=== PATIENT | female | born 1970 | race African-American/Black ===

== ENCOUNTER 2019-12-04 06:56 | Emergency (ER) | payer OTHER, SELFPAY ==
--- NOTE | ~2019-12-04 | US_ITS ---
EXAMINATION: US venous doppler [facility] DATE: 12/04/2019 08:28 INDICATION: Left lower limb pain and swelling TECHNIQUE: Alejandro scale images without and with compression and Doppler images of the left lower extrem ity veins were obtained. COMPARISON: None FINDINGS: The left common femoral vein, profunda femoral vein, femoral vein, popliteal vein, peroneal trunk, posterior tibial veins, and greater saphenous vein are patent. IMPRESSION: 1. Patent left lower extremity veins. No evidence of deep venous thrombosis. Reviewed, dictated and finalized at location B.
[2019-12-04 07:02] VITALS: BP 164/116; PULSE 91; RESP 20; TEMP 35.8; O2SAT 100
--- NOTE | 2019-12-04 07:50 | ED.EXTPRO ---
HPI - Extremity Problem General Chief complaint: Extremity Problem,Nontraumatic Stated complaint: LEFT CALF PAIN TO FOOT Time Seen by Provider: 12/04/19 07:44 History of Present Illness HPI Narrative: Patient presents to the ED for left lower leg swelling and pain since yesterday. She has had no injury or new exercise. She says she has rheumatoid arthritis. 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 She says the pain starts behind her left knee and goes down into the calf. This morning she noticed swelling and her left foot felt numb. She does not smoke cigarettes, drink alcohol, or do drugs. She has a surgical history of tubal ligation, and breast reduction. She has not been sick recently. MD Complaint: extremity pain and extremity swelling Onset (ago): day(s) Pain Consistency: constant Location: left Severity scale (1-10): 6 Radiation: distal Relieving factors: nothing Exacerbating factors: palpation Associated symptoms: arthralgias Related Data Home Medications Medication Instructions Recorded Confirmed metoprolol succinate 50 mg PO DAILY 12/04/19 Allergies Allergy/AdvReac Type Severity Reaction Status Date / Time No Known Allergies Allergy Verified 12/04/19 07:13 Review of Systems Review of Systems: Narrative: CONSTITUTIONAL: Denies fever, chills, or sweats. EYES: Denies visual changes, redness, or discharge. ENT: Denies rhinorrhea, congestion, sore throat, or otalgia. CARDIOVASCULAR: Denies chest pain, palpitations, or edema. RESPIRATORY: Denies cough or dyspnea. GASTROINTESTINAL: Denies abdominal pain, nausea, vomiting, or diarrhea. GENITOURINARY: Denies dysuria or hematuria. SKIN: Denies rash or itching. MUSCULOSKELETAL: Denies back pain, but has left knee pain and left calf pain. NEUROLOGIC: Denies headache, numbness, or weakness. PSYCHIATRIC: Denies anxiety or depression. [facility] Past Medical History Medical History (Updated 12/04/19 @ 09:16 by Hayde Portillo MD) Depression HTN (hypertension) Morbid obesity Rheumatoid arthritis Surgical History Surgical History H/O tubal ligation Hx of hysterectomy Social History Social History (Updated 12/04/19 @ 07:52 by Hayde Portillo MD) Smoking status: Never smoker Alcohol intake: current Substance use: current Gender identity (if verbalized by the patient): Female Exam Narrative: Exam Narrative: GENERAL: Well-appearing, well-nourished, and in no acute distress. Black short wig. HEAD: Normocephalic, atraumatic. EYES: PERRLA and EOMI. ENT: Nares clear, no rhinorrhea or epistaxis. Mucous membranes moist. NECK: Supple. CHEST: Clear to auscultation. No respiratory distress. HEART: Regular rate and rhythm. No murmur heard. Normal peripheral pulses. ABDOMEN: Soft, nontender, nondistended, normal active bowel sounds. EXTREMITIES: Normal range of motion. Left calf 19-1/4 inches. Right calf 18-3/4 inches. SKIN: Warm, dry, no rash. NEURO: No focal deficits. Alert and oriented x3. PSYCH: Normal mood and affect. Course Reevaluation(s) Reevaluation #1: I was glad to tell the patient that she did not have a blood clot in her leg. She has the known rheumatoid arthritis in the knee. I recommended an Fidel bandage and elevation. She has 2 days off work. She has a follow-up appointment with her apparel fashion designer next month. Date: 12/04/19 Time: 09:21 Vital Signs Vital signs: Vital Signs Temperature 96.5 F L 12/04/19 07:02 Pulse Rate 91 12/04/19 07:02 Respiratory Rate 12/04/19 07:02 Blood Pressure 164/116 H 12/04/19 07:02 Pulse Oximetry 100 12/04/19 07:02 Temperature 96.5 F L 12/04/19 07:02 Pulse Rate 91 12/04/19 07:02 Respiratory Rate 12/04/19 07:02 Blood Pressure 164/116 H 12/04/19 07:02 Pulse Oximetry 100 12/04/19 07:02 MDM - Extremity (Nontraumatic) Medical Records Attestation: I reviewed the patient's m
[2019-12-04 08:44] LABS: Basophils Percent Auto 0.3 % (0.2-1.2); Eosinophils Absolute Auto 0.2 K/mm3 (0-0.3); Eosinophils Percent Auto 2.4 % (0-4.4); Hematocrit 38.5 % (37.0-47.0); Hemoglobin 12.3 g/dL (12.0-15.0); Immature Granulocyte Absolute 0.03 K/mm3 (0.00-0.031); Immature Granulocyte Percent A 0.3 % (0-0.5); Lymphocytes Absolute Auto 3.07 K/mm3 (0.9-3.2); Lymphocytes Percent Auto 34.8 % (18.3-44.2); Mean Corpuscular HGB Conc 31.9 g/dl (32-36); Mean Corpuscular Volume 81.4 fl (80-100); Mean Platelet Volume 10.4 fl (7.4-10.4); Monocytes Absolute Auto 0.4 K/mm3 (0.1-0.6); Monocytes Percent Auto 4.8 % (2.6-8.5); Neutrophils Absolute Auto 5.1 K/mm3 (1.3-6.7); Neutrophils Percent Auto 57.4 % (45.5-73.1); Platelet Count Result 255 k/mm3 (150-375); Red Blood Count 4.73 M/mm3 (4.2-5.4); Red Cell Distribution Width 15.5 % (11.5-14.5); White Blood Count 8.8 K/mm3 (4.5-10.0)
[2019-12-04 08:55] LABS: INR 0.9
[2019-12-04 08:59] LABS: Alanine Aminotransferase 31 U/L (4-35); Albumin Level 3.9 g/dL (3.5-5.1); Alkaline Phosphatase 92 U/L (38-126); Aspartate Amino Transferase 31 U/L (14-36); Bilirubin,Total 0.7 mg/dL (0.2-1.3); Blood Urea Nitrogen 13 mg/dL (7-17); Calcium 9.1 mg/dL (8.4-10.2); Carbon Dioxide 25 mmol/L (22-30); Chloride 106 mmol/L (98-107); Estimated CRCL calculation 101 ml/min; Estimated Glomerular Filt Rate > 60; Glucose 100 mg/dL (65-105); Sodium 137 mmol/L (137-145)
[2019-12-04 09:12] LABS: D Dimer 1.42 ug/mL (<0.48)
== END 2019-12-04 09:24 | disposition home or self-care (01) ==
PROVIDERS: Emergency Provider Emergency Medicine; PCP Family Medicine
DX: R60.0 Localized edema (principal); M06.9 Rheumatoid arthritis, unspecified; E66.01 Morbid (severe) obesity due to excess calories; Z68.41 Body mass index [BMI] 40.0-44.9, adult; I10 Essential (primary) hypertension
CPT/HCPCS: 36415; 80053; 85025; 85380; 85610; 93971; 99284

== ENCOUNTER 2020-04-10 18:56 | Emergency (ER) | payer OTHER, SELFPAY ==
[2020-04-10 19:04] VITALS: BP 151/100; PULSE 99; RESP 16; TEMP 37.2; O2SAT 99
--- NOTE | 2020-04-10 19:10 | ED.FEMALEGU ---
HPI - Female Genitourinary General Chief complaint: Urogenital-Female Stated complaint: UTI Source: patient Mode of arrival: ambulatory Limitations: no limitations History of Present Illness HPI Narrative: Patient is a 49-year-old female who presents complaining of dysuria x1 week, increasing over the past few days. She denies hematuria. 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 She reports a history of UTIs in the past, but has not had 1 in over a year. She denies fever, body aches or other complaints. MD elicited complaint: dysuria Related Data Home Medications Medication Instructions Recorded Confirmed metoprolol succinate 50 mg PO DAILY 12/04/19 04/10/20 escitalopram oxalate 10 mg PO DAILY 04/10/20 04/10/20 leflunomide 20 mg PO DAILY 04/10/20 04/10/20 tofacitinib [Xeljanz XR] 11 mg PO DAILY 04/10/20 04/10/20 Allergies Allergy/AdvReac Type Severity Reaction Status Date / Time No Known Allergies Allergy Verified 12/04/19 07:13 Review of Systems Review of Systems: Narrative: CONSTITUTIONAL: Denies fever, chills, or sweats. EYES: Denies visual changes, redness, or discharge. ENT: Denies rhinorrhea, congestion, sore throat, or otalgia. CARDIOVASCULAR: Denies chest pain, palpitations, or edema. RESPIRATORY: Denies cough or dyspnea. GASTROINTESTINAL: Denies abdominal pain, nausea, vomiting, or diarrhea. GENITOURINARY: Reports dysuria. SKIN: Denies rash or itching. MUSCULOSKELETAL: Denies back pain, joint pain, or myalgia. NEUROLOGIC: Denies headache, numbness, dizziness, or weakness. PSYCHIATRIC: Denies anxiety or depression. [facility] Past Medical History Medical History Depression HTN (hypertension) Morbid obesity Rheumatoid arthritis Surgical History Surgical History H/O tubal ligation Hx of hysterectomy Family History Family History Other Lung cancer Other Heart disease Hypertension Social History Social History (Reviewed 04/10/20 @ 19:21 by LUZ ELENA Forrester Smoking status: Never smoker Alcohol intake: current Substance use: current Gender identity (if verbalized by the patient): Female Exam Narrative: Exam Narrative: GENERAL: Well-appearing, well-nourished, and in no acute distress. HEAD: Normocephalic, atraumatic. EYES: No redness or drainage. ENT: Mucous membranes pink and moist. CHEST: No respiratory distress. HEART: Regular rate and rhythm. GI: Soft, nontender without rebound, or guarding. EXTREMITIES: Normal range of motion. NEURO: No focal deficits. Alert and oriented x3. Gait steady. PSYCH: Normal affect. No signs of depression or anxiety. Course Vital Signs Vital signs: Reviewed. Patient has been instructed to follow-up with her PCP regarding her blood pressure. MDM - Female Genitourinary MDM Narrative Medical decision making narrative: Discussed with patient most likely cause for her dysuria is lack of hydration. Patient reports that she is unable to drink during her long shifts. Discussed trying to stay well-hydrated. We will start patient on Bactrim as she has a history of UTIs but has not had 1 in well over a year. Patient's UA was negative in urgent care. Patient to follow-up with her PCP in 3 to 5 days if symptoms persist. Patient is stable for discharge home with outpatient follow-up as discussed. Critical Care Time Critical Care Time Critical Care Time: No Discharge Plan Discharge Clinical Impression: Dysuria Patient Disposition: Home, Self-Care Condition: Stable Instructions: Antibiotic Form, Dysuria (ED) Additional Instructions: Take medication as directed. Continue to stay well-hydrated, decreased caffeine and carbonated beverages. Follow-up with your PCP and 3 to 5 days if symptoms pe
== END 2020-04-10 19:29 | disposition home or self-care (01) ==
PROVIDERS: Emergency Provider Nurse Practitioner; PCP Family Medicine
DX: R30.0 Dysuria (principal); I10 Essential (primary) hypertension; F32.9 Major depressive disorder, single episode, unspecified; M06.9 Rheumatoid arthritis, unspecified; E66.01 Morbid (severe) obesity due to excess calories; Z68.42 Body mass index [BMI] 45.0-49.9, adult
CPT/HCPCS: 81003; 99213; G0463

== ENCOUNTER 2023-07-23 22:54 | Emergency (ER) | payer OTHER, SELFPAY ==
[2023-07-23 23:00] VITALS: BP 175/106; PULSE 107; RESP 16; TEMP 36.4; O2SAT 98
--- NOTE | 2023-07-24 00:19 | PC.NURSE ---
Patient called for a room. No answer
== END 2023-07-24 00:19 | disposition left against medical advice (07) ==
PROVIDERS: PCP Family Medicine
DX: R10.13 Epigastric pain (principal)
CPT/HCPCS: 99199

== ENCOUNTER 2023-12-04 13:25 | Emergency (ER) | payer OTHER, SELFPAY ==
[2023-12-04 13:38] VITALS: BP 112/70; PULSE 78; RESP 16; TEMP 36.6; O2SAT 99
--- NOTE | 2023-12-04 14:09 | ED.DENTAL ---
HPI - Dental/Oral General Chief complaint: Dental/Oral Stated complaint: right side tooth pain Time Seen by Provider: 12/04/23 14:05 Source: patient and RN notes reviewed Mode of arrival: ambulatory Limitations: no limitations History of Present Illness HPI Narrative: Patient presents today complaining of right lower gumline discomfort times 10 days. She had a root canal done 2 years ago but never had a crown placed. Since that time the tooth has broken off and pieces and she has small amount of the tooth left. She has been taking ibuprofen with some relief. She does have a dentist and will make an appointment next week. Related Data Home Medications Medication Instructions Recorded Confirmed metoprolol succinate 50 mg 50 mg PO DAILY 12/04/19 12/04/23 tablet,extended release 24 hr escitalopram oxalate 10 mg tablet 10 mg PO DAILY 04/10/20 12/04/23 leflunomide 20 mg tablet 20 mg PO DAILY 04/10/20 12/04/23 tofacitinib 11 mg tablet,extended 11 mg PO DAILY 04/10/20 12/04/23 release 24 hr (Xeljanz XR) chlorthalidone 25 mg tablet 25 mg PO DAILY 12/04/23 12/04/23 lisinopril 10 mg tablet 10 mg PO DAILY 12/04/23 12/04/23 meloxicam 15 mg tablet See Rx Instructions .Route .COMPLEX 12/04/23 12/04/23 semaglutide 1 mg/dose (4 mg/3 mL) See Rx Instructions .Route .COMPLEX 12/04/23 12/04/23 subcutaneous pen injector (Ozempic) Allergies Allergy/AdvReac Type Severity Reaction Status Date / Time No Known Allergies Allergy Verified 12/04/23 13:43 Review of Systems Review of Systems: CONSTITUTIONAL: Denies body aches, fever, chills, or sweats. EYES: Denies visual changes, redness, or discharge. ENT: Denies rhinorrhea, congestion, sore throat, or otalgia.+ discomfort of the gumline CARDIOVASCULAR: Denies chest pain, palpitations, or edema. RESPIRATORY: Denies cough or dyspnea. GASTROINTESTINAL: Denies abdominal pain, nausea, vomiting, or diarrhea. GENITOURINARY: Denies dysuria or hematuria. SKIN: Denies rash, itching, or wounds. MUSCULOSKELETAL: Denies back pain, joint pain, or myalgia. NEUROLOGIC: Denies headache, numbness, tingling, or weakness. PSYCH: Denies depression or anxiety. [facility] Past Medical History Medical History Depression HTN (hypertension) Morbid obesity Rheumatoid arthritis Surgical History Surgical History H/O tubal ligation Hx of hysterectomy Family History Family History Other Lung cancer Other Heart disease Hypertension Social History Social History Smoking status: Never smoker Alcohol intake: current Substance use: current Gender identity (if verbalized by the patient): Female Comments At time of signature, I have reviewed and agree with nursing past medical, surgical, social and family history unless otherwise noted. Please see nursing chart for further information. There is no relevant family history pertinent to the presenting complaint Exam Narrative: GENERAL: Well-appearing, well-nourished, and in no acute distress. HEAD: Normocephalic, atraumatic. EYES: EOMI. No redness or drainage. Conjunctivae normal. ENT: Mucous membranes pink and moist. Tooth number 30 is mostly broken off at the gumline. Surrounding gums are erythematous and edematous. No obvious periapical abscess. No facial swelling noted. No trismus. NECK: Normal AROM. CHEST: No respiratory distress. EXTREMITIES: Normal range of motion. No edema. SKIN: Warm, dry, no rash. Capillary refill normal. Normal skin turgor. NEURO: No focal deficits. Alert and oriented x3. Gait steady. PSYCH: Normal affect. No signs of depression or anxiety. Course Course Level of Care: Express Care Visit Vital Signs Vital signs: Vital Signs Temperature 97.8 F
== END 2023-12-04 14:14 | disposition home or self-care (01) ==
PROVIDERS: Emergency Provider Nurse Practitioner; PCP Family Medicine
DX: K04.7 Periapical abscess without sinus (principal); I10 Essential (primary) hypertension; E66.01 Morbid (severe) obesity due to excess calories; Z68.42 Body mass index [BMI] 45.0-49.9, adult; M06.9 Rheumatoid arthritis, unspecified; F32.A Depression, unspecified
CPT/HCPCS: 99213; G0463

== ENCOUNTER 2025-02-16 16:31 | Emergency (ER) | payer OTHER, SELFPAY ==
[2025-02-16 16:43] VITALS: BP 116/81; PULSE 93; RESP 18; TEMP 36.8; O2SAT 98
[2025-02-16 17:34] LABS: EDUAAPPEAR Clear; EDUABILI Negative (Negative); EDUABLOOD Trace (Negative); EDUACOLOR1 Dark; EDUAGLUCOSE Negative (Negative); EDUAKETONE Trace (Negative); EDUALEUKO 1+ (Negative); EDUANITRATE Negative (Negative); EDUAPH 5.5; EDUAPROTEIN Negative (Negative); EDUASPGRAVITY 1.025; EDUAUROBILI 0.2
--- NOTE | 2025-02-16 18:01 | ED.FEMALEGU ---
HPI - Female Genitourinary General Chief complaint: Urogenital-Female Stated complaint: urinary irritation Time Seen by Provider: 02/16/25 17:30 Source: patient, RN notes reviewed and old records reviewed Mode of arrival: ambulatory Limitations: no limitations History of Present Illness HPI Narrative: 54 year old female who presents to express care with concerns of UTI and possible exposure to STI with complaints of thin white vaginal discharge moderate amounts for the past 4 days. She was with her partner about 7 days ago had not been with him for 2-3 months and since past 4 days has had burning and itching in perineal area. Patient reports no known fevers or any suprapubic discomfort. Patient reports that she has not had any nausea or vomiting or any diarrhea. MD elicited complaint: UTI Pertinent past history: other (Rheumatoid arthritis on Xeljanz) Onset (ago): day(s) (4) Location of symptoms: perineum, urethra and vaginal Severity: moderate Vaginal discharge: white (thin and itchy) Vaginal bleeding: none Urinary symptoms: Dysuria Treatment prior to arrival: none Related Data Home Medications ?Medication ?Instructions ?Recorded ?Confirmed ?Last Taken ?Type metoprolol succinate 50 mg 50 mg PO DAILY 12/04/19 12/04/23 12/04/19 History tablet,extended release 24 hr escitalopram oxalate 10 mg tablet 10 mg PO DAILY 04/10/20 12/04/23 Unknown History leflunomide 20 mg tablet 20 mg PO DAILY 04/10/20 12/04/23 Unknown History tofacitinib 11 mg tablet,extended 11 mg PO DAILY 04/10/20 12/04/23 Unknown History release 24 hr (Xeljanz XR) chlorthalidone 25 mg tablet 25 mg PO DAILY 12/04/23 12/04/23 Unknown History lisinopril 10 mg tablet 10 mg PO DAILY 12/04/23 12/04/23 Unknown History meloxicam 15 mg tablet See Rx Instructions .Route .COMPLEX 12/04/23 12/04/23 Unknown History semaglutide 1 mg/dose (4 mg/3 mL) See Rx Instructions .Route .COMPLEX 12/04/23 12/04/23 Unknown History subcutaneous pen injector (Ozempic) Allergies Allergy/AdvReac Type Severity Reaction Status Date / Time No Known Allergies Allergy Verified 02/16/25 16:57 Review of Systems Review of Systems: CONSTITUTIONAL: Denies fever, chills, or sweats. CARDIOVASCULAR: Denies chest pain, palpitations, or edema. RESPIRATORY: Denies cough or dyspnea. GASTROINTESTINAL: Denies abdominal pain, nausea, vomiting, or diarrhea. GENITOURINARY: Reports some burning, no frequency,no urgency. Denies flank pain or hematuria. Reports vaginal discharge white thin and itchy, SKIN: Denies rash or itching. MUSCULOSKELETAL: Denies back pain or myalgia. Denies CVA tenderness NEUROLOGIC: Denies headache All systems reviewed & are unremarkable except as noted in HPI and below PMFSH Past Medical History Medical History Morbid obesity Depression Rheumatoid arthritis HTN (hypertension) Surgical History Surgical History Hx of hysterectomy H/O tubal ligation Family History Family History Other Lung cancer Other Heart disease Hypertension Social History Social History Smoking status: Never smoker Alcohol intake: current Substance use: current Gender identity (if verbalized by the patient): Female Comments At time of signature, agree with nursing past medical, surgical, social and family history. There is no relevant family history pertinent to the presenting complaint Exam Narrative: GENERAL: Well-appearing, well-nourished, and in no acute distress. HEAD: Normocephalic, atraumatic. NECK: Supple.no lymphadenopathy CHEST: Clear to auscultation. No respiratory distress. no cough SAO2 98% on room air HEART: Regular rate and rhythm. No murmur heard. Normal peripheral pulses. ABDOMEN: Soft, nontender, nondistended, normal active bowel sounds. No CVA tenderness vaginal discharge reported with perineal burning and itching EXTREMITIES: Normal range of motion. No edema. SKIN: Warm, dry, no rash. NEURO: No focal deficits. Alert and oriented x3. Course Course Emergency Course: Patient is aware of diagnosis, understands and agrees to treatment plan.? Anticipatory guidance given.? Patient agrees to follow-up as directed and is aware of reasons to seek care at the emergency department. Portions of this record may have been created with voice recognition software Level of Care: Express Care Visit Vital Signs Vital signs: Vital Signs Temperature 36.8 C 02/16/25 16:43 Pulse Rate 93 02/16/25 16:43 Respiratory Rate 18 02/16/25 16:43 Blood Pressure 116/81 02/16/25 16:43 Pulse Oximetry 98 02/16/25 16:43 Oxygen Delivery Room Air 02/16/25 16:43 Temperature 36.8 C 02/16/25 16:43 Pulse Rate 93 02/16/25 16:43 Respiratory Rate 18 02/16/25 16:43 Blood Pressure 116/81 02/16/25 16:43 Pulse Oximetry 98 02/16/25 16:43 Oxygen Delivery Room Air 02/16/25 16:43 MDM - Female Genitourinary MDM Narrative Medical decision making narrative: Exam findings and UA show no acute concerns or changes; patient is non-toxic appearing and is in no distress.? Patient is appropriate for outpatient treatment and follow-up. Differential Diagnosis Differential diagnosis: Likely urinary tract infection, cystitis and other (possible exposure to STD, vaginal discharge, perineal burning and itching) Medical Records Attestation: I reviewed the patient's medical records. Lab Data Attestation: I reviewed the patient's lab results. Lab results narrative: urine dip reviewed trace blood and leukocytes 1+, urine for STD's sent, also vaginal culture and also BV swabs sent for analysis Labs: Lab Results 02/16/25 02/16/25 Range/Units 16:55 17:32 POC Urine Color Dark POC Urine Clarity Clear POC Urine pH 5.5 POC Ur Specif [place] 1.025 POC Urine Protein Negative (Negative) POC Ur Glucose (UA) Negative (Negative) POC Urine Ketones Trace (Negative) POC Urine Blood Trace (Negative) POC Urine Nitrite Negative (Negative) POC Urine Bilirubin Negative (Negative) POC Urine Urobilinogen 0.2 POC U Leukocyte Esteras 1+ (Negative) C. trachomatis (PCR) Not detected (NOT DETECTE) N. gonorrhoeae (PCR) Not detected (NOT DETECTE) T. vaginalis (PCR) Detected A (NOT DETECTE) reviewed Critical Care Time Critical Care Time Critical Care Time: No Discharge Plan Discharge Clinical Impression: Possible exposure to STD, Vaginal discharge Urinary tract infection Qualifiers: Urinary tract infection type: site unspecified Hematuria presence: with hematuria Qualified Code(s): N39.0 - Urinary tract infection, site not specified Patient Disposition: Home Condition: Stable Instructions: Antibiotic Form, Sexually Transmitted Diseases (ED), Urinary Tract Infection in Women (ED), Vaginal Discharge (ED) Additional Instructions: Increase fluids especially cranberry juice and water Avoid caffeine and carbonated beverages Antibiotic as directed Tylenol/ibuprofen for pain or fever Follow-up with her primary care provider if further problems or concerns Recheck if you have fever over 101, nausea and vomiting. Urine for STD sent per dirty urine and vaginal cultures and also BV swab If your symptoms persist, change or worsen significantly before you can contact your personal physician then please, without delay, go to the emergency department for further evaluation. Follow-up with PCP in 7-10 days or sooner if needed You will be notified of test results abstain from sexual intercourse till results obtained, If positive must abstain from sexual intercourse for 2 weeks after completion of treatment. Patient Language: Czech Prescriptions: New amoxicillin-pot clavulanate 875-125 mg tablet 1 tablet PO Q12H Qty: 14 0RF Rx Instructions: take with food, recommend taking probiotic or eating activia urine while on this antibiotic No Action leflunomide 20 mg tablet 20 mg PO DAILY escitalopram oxalate 10 mg tablet 10 mg PO DAILY Xeljanz XR 11 mg tablet extended release 24 hr 11 mg PO DAILY meloxicam 15 mg tablet See Rx Instructions .ROUTE .COMPLEX Rx Instructions: Rx chlorthalidone 25 mg tablet 25 mg PO DAILY lisinopril 10 mg tablet 10 mg PO DAILY Ozempic 1 mg/dose (4 mg/3 mL) pen injector See Rx Instructions .ROUTE .COMPLEX Rx Instructions: Rx metoprolol succinate 50 mg Tablet Extended Release 24 Hr 50 mg PO DAILY Follow-up/Referrals: Good,Shubham Zamora MD [Primary Care Provider, Unknown] Time of Disposition: 18:10 Quality Ken Coma Scale Eyes: Open Verbal: Oriented and Alert Motor: Follows Commands Emmet Coma Total Score: 15
[2025-02-16 20:37] LABS: Trichomonas Vag PCR DETECTED (NOT DETECTE)
== END 2025-02-16 18:20 | disposition home or self-care (01) ==
PROVIDERS: Emergency Provider Registered Nurse; PCP Family Medicine
DX: A59.9 Trichomoniasis, unspecified (principal); N39.0 Urinary tract infection, site not specified; M06.9 Rheumatoid arthritis, unspecified; I10 Essential (primary) hypertension; E66.01 Morbid (severe) obesity due to excess calories; Z68.39 Body mass index [BMI] 39.0-39.9, adult; F32.A Depression, unspecified
CPT/HCPCS: 81003; 87070; 87086; 87491; 87591; 87661; 87798; 99213; G0463